=== PATIENT | male | born 1945 | race Native Hawaiian/Other Pacific Islander ===

== ENCOUNTER 2022-04-04 13:41 | Emergency (ER) | payer OTHER ==
[~2022-04-04] VITALS: Ht 177.8 cm; Wt 81.6 kg
[2022-04-04 13:41] VITALS: BP 136/61; TEMP 98.5
[2022-04-04 14:03] LABS: PLATELET COUNT 208 K/uL (142-355); POTASSIUM 3.7 mmol/L (3.6-5.2)
[2022-04-04] MEDS ORDERED: AMLODIPINE BESYLATE PO (16:15)
[2022-04-04] MEDS ORDERED: OLANZAPINE2.5 MG PO (16:16)
[2022-04-04] MEDS ORDERED: QUET100T2 PO (16:16)
[2022-04-04] MEDS ORDERED: DIVALPROEX250 M1 PO (16:18)
[2022-04-04] MEDS ORDERED: GABA100C2 PO (16:18)
[2022-04-04] MEDS ORDERED: RIVASTIGMINE1.5 MG PO (16:19)
[2022-04-04] MEDS ORDERED: POLY GLYCOL3350 M1 PO (16:20)
[2022-04-04] MEDS ORDERED: HYDR25CA25 PO (16:20)
== END 2022-04-04 15:06 | disposition still patient (30) ==
LOC: ED 13:41
PROVIDERS: Emergency Medicine Emergency Medical Services
DX: F03.911 Unspecified dementia, unspecified severity, with agitation (principal); Z11.52 Encounter for screening for COVID-19; Z04.6 Encounter for general psychiatric examination, requested by authority
CPT/HCPCS: 80053; 85027; 87635; 93005; 99283; U0003